=== PATIENT | female | born 1945 | race Caucasian/White ===

== ENCOUNTER 2016-12-27 09:51 | Day surgery (SDC) | payer MEDICARE ==
[~2016-12-27 09:51] MED LIST: Acetaminophen TAB* 325 MG PO PRN; Buffered Lidocaine 1% SYR 3ML* 3 ML/SYR SYRINGE INTRADERM ONE
[2016-12-27] MEDS ORDERED: Trypan Blue 0.06% SOL* 0.5 ML BTL ONE (12:03)
[2016-12-27] MEDS ORDERED: Midazolam* 1 MG/ML 2 ML VIAL (2 MG) ONE (12:46)
[2016-12-27 13:47] VITALS: BP 127/69
--- NOTE | 2016-12-28 04:23 | OP ---
DATE OF OPERATION: 12/27/16 [facility] DATE OF : 45 SURGEON: Guero Hensley MD PREOPERATIVE DIAGNOSIS: Cataract, right eye. POSTOPERATIVE DIAGNOSIS: Cataract, right eye. OPERATIVE PROCEDURE: Phacoemulsification, right eye with IOL. DESCRIPTION OF PROCEDURE: The patient was brought to the operating room after being given 1/2% Alcaine with epinephrine drops in the preoperative area. The eye was prepped and draped in the usual sterile fashion. Sterile drape and eyelid speculum were placed. Again, topical 1/2% Alcaine with epinephrine was given. A paracentesis incision was made at the 9 o'clock position with the No.75 blade. Clear cornea incision 2.2 x 2.2-mm was created at the 12 o'clock position starting at the anterior limbus using the 2.2-mm keratome. The anterior chamber was irrigated with 0.4 mL of 1% non-preservative intracameral lidocaine and filled with DisCoVisc. A capsulorrhexis was completed using the cystotome and the Utrata forceps. Hydrodissection was performed with balanced salt solution. The lens nucleus was removed with the Phacoemulsification handpiece without incident. Cortex was removed with the irrigation-aspiration handpiece. The capsular bag was re-inflated using DisCoVisc and an SN60WF 24.5 implant was inserted with the shooter. VisionBlue was used to stain the anterior capsule prior to capsulorrhexis. Indication for complex cataract surgery white cataract requiring VisionBlue capsular dye. The irrigation- aspiration handpiece was used to remove all residual DisCoVisc. The eye was refilled with balanced salt solution and the wound checked and found to be watertight. Topical Maxitrol drops were given. [id number]/[facility] #: [id number] MTDD
[2016-12-28] MEDS ORDERED: Lidocaine 1% MPF* 2 ML VIAL ONE (14:29)
[2016-12-28] MEDS ORDERED: Proparacaine 0.5% OPHTH.SOL* 15 ML BTL ONE (14:29)
[2016-12-28] MEDS ORDERED: Flurbiprofen 0.03% OPTH.SOL* 2.5 ML BTL ONE (14:29)
[2016-12-28] MEDS ORDERED: Cyclopentolate 1% OPTH.SOL* 2 ML BTL ONE (14:29)
[2016-12-28] MEDS ORDERED: Lidocaine 2% EPI 1:200000 MPF* 20 ML VIAL ONE (14:29)
[2016-12-28] MEDS ORDERED: acetaZOLAMIDE TAB* 250 MG ONE (14:29)
[2016-12-28] MEDS ORDERED: Phenylephrine 2.5% OPTH.SOL* 2 ML BTL ONE (14:29)
[2016-12-28] MEDS ORDERED: Povidone Iodine 5% OPTH* 30 ML BTL ONE (14:29)
[2016-12-28] MEDS ORDERED: Neomycin/Polymy/Dex OPTH.SUSP* MAXITROL 0.1% 5 ML ONE (14:29)
== END 2016-12-27 13:43 | disposition home or self-care (01) ==
LOC: OREAST 09:51
PROVIDERS: ATTEND Specialist
DX: H25.811 Combined forms of age-related cataract, right eye (principal); I10 Essential (primary) hypertension; F17.210 Nicotine dependence, cigarettes, uncomplicated
CPT/HCPCS: A9270-GY; J2250; V2632

== ENCOUNTER → 2017-01-31 09:29 | Day surgery (SDC) | payer MEDICARE ==
[~2017-01-31 09:29] MED LIST changes: -Buffered Lidocaine 1% SYR 3ML* 3 ML/SYR SYRINGE INTRADERM ONE; +Buffered Lidocaine 1% SYRIN* 3 ML/SYR SYRINGE INTRADERM ONE; +Cyclopentolate 1% OPTH.SOL* 2 ML BTL ONE; +Flurbiprofen 0.03% OPTH.SOL* 2.5 ML BTL ONE; +Lidocaine 1% MPF* 2 ML VIAL ONE; +Lidocaine 2% EPI 1:200000 MPF* 20 ML VIAL ONE; +Midazolam* 1 MG/ML 2 ML VIAL (2 MG) ONE; +Neomycin/Polymy/Dex OPTH.SUSP* MAXITROL 0.1% 5 ML ONE; +Phenylephrine 2.5% OPTH.SOL* 2 ML BTL ONE; +Povidone Iodine 5% OPTH* 30 ML BTL ONE; +Proparacaine 0.5% OPHTH.SOL* 15 ML BTL ONE; +acetaZOLAMIDE TAB* 250 MG ONE
[2017-01-31 12:49] VITALS: BP 130/74
--- NOTE | 2017-02-01 12:19 | OP ---
DATE OF OPERATION: 01/31/17 [facility] DATE OF : 45 SURGEON: Guero Hensley M.D. PREOPERATIVE DIAGNOSIS: Cataract, left eye. POSTOPERATIVE DIAGNOSIS: Cataract, left eye. OPERATIVE PROCEDURE: Phacoemulsification, left eye, with IOL. DESCRIPTION OF PROCEDURE: The patient was brought to the operating room after being given 1/2% Alcaine with epinephrine drops in the preoperative area. The eye was prepped and draped in the usual sterile fashion. Sterile drape and eyelid speculum were placed. Again, topical 1/2% Alcaine with epinephrine was given. A paracentesis incision was made at the 3 o'clock position with the No.75 blade. Clear cornea incision 2.2 x 2.2-mm was created at the 6 o'clock position starting at the anterior limbus using the 2.2-mm keratome. The anterior chamber was irrigated with 0.4 mL of 1% non-preservative intracameral lidocaine and filled with DisCoVisc. A capsulorrhexis was completed using the cystotome and the Utrata forceps. Hydrodissection was performed with balanced salt solution. The lens nucleus was removed with the Phacoemulsification handpiece without incident. Cortex was removed with the irrigation-aspiration handpiece. The capsular bag was re-inflated using DisCoVisc and an SN60WF 23.5- diopter implant was inserted with the shooter. The irrigation-aspiration handpiece was used to remove all residual DisCoVisc. The eye was refilled with balanced salt solution and the wound checked and found to be watertight. Topical Maxitrol drops were given. [id number]/[facility] #: [id number] [facility]
== END | disposition home or self-care (01) ==
LOC: OREAST 09:29
PROVIDERS: ATTEND Specialist
DX: H25.812 Combined forms of age-related cataract, left eye (principal); I10 Essential (primary) hypertension; F17.210 Nicotine dependence, cigarettes, uncomplicated; M19.90 Unspecified osteoarthritis, unspecified site
CPT/HCPCS: J2250; V2632

== ENCOUNTER 2018-05-09 02:55 | Emergency (ER) | payer MEDICARE ==
[2018-05-09] MEDS ORDERED: Clindamycin CAP* 150 MG PO ONE (03:14)
[2018-05-09] MEDS ORDERED: traMADol TAB* 50 MG PO ONE (03:15)
--- NOTE | 2018-05-09 03:17 | ED ---
Throat Pain/Nasal Congestion - HPI Summary HPI Summary: This patient is a 72 year old F presenting to ED with a chief complaint of swollen L mandibular since 1700 yesterday. The patient was not eating before onset. Her dentist wanted to pull her 3 teeth but she wouldnt let him. The CC is described as throbbing. The patient rates the pain 6/10 in severity. Symptoms aggravated by touching. Symptoms alleviated by nothing. Patient reports chills. Patient denies fever. - History of Current Complaint Chief Complaint: EDDentalPain Time Seen by Provider: 05/09/18 03:06 Hx Obtained From: Patient Onset/Duration: Sudden Onset, Lasting Hours - 1700 yesterday, Still Present Severity: Moderate - 6/10 - Allergies/Home Medications Allergies/Adverse Reactions: Allergies Allergy/AdvReac Type Severity Reaction Status Date / Time Penicillins Allergy Hives Verified 05/09/18 03:07 Home Medications: Home Medications Hydrochlorothiazide TAB* [Hydrodiuril TAB*] 25 mg PO DAILY 05/09/18 [History Confirmed 05/09/18] PMH/Surg Hx/FS Hx/Imm Hx Endocrine/Hematology History: Denies: Hx Diabetes, Hx Thyroid Disease Cardiovascular History: Reports: Hx Hypertension - controlled with meds Denies: Hx Pacemaker/ICD Respiratory History: Denies: Hx Asthma, Hx Chronic Obstructive Pulmonary Disease (COPD), Other Respiratory Problems/Disorders GI History: Denies: Hx Ulcer Musculoskeletal History: Reports: Hx Arthritis - fingers right hand Sensory History: Reports: Hx Cataracts - bilateral, Hx Contacts or Glasses - wears glasses Denies: Hx Hearing Aid Opthamlomology History: Reports: Hx Cataracts - bilateral, Hx Contacts or Glasses - wears glasses - Surgical History Surgery Procedure, Year, and Place: hysterectomy - 20 years ago, [facility] – [place]. right eye IOL - december 2016, [facility] – [place] Hx Anesthesia Reactions: No Infectious Disease History: No Infectious Disease History: Denies: Hx Hepatitis, Hx Human Immunodeficiency Virus (HIV), Traveled Outside the [place] in Last 30 Days - Family History Known Family History: Positive: Hypertension Negative: Cardiac Disease, Diabetes - Social History Alcohol Use: None Substance Use Type: Reports: None Hx Tobacco Use: Yes Smoking Status (MU): Heavy Every Day Tobacco Smoker Type: Cigarettes Amount Used/How Often: 1 1/2 PPD Review of Systems Positive: Chills. Negative: Fever Positive: Other - swollen L mandibular All Other Systems Reviewed And Are Negative: Yes Physical Exam - Summary Physical Exam Summary: VITAL SIGNS: Reviewed. GENERAL: Patient is a well-developed and nourished FEMALE who is lying comfortable in the stretcher. Patient is not in any acute respiratory distress. HEAD AND FACE: No signs of trauma. No ecchymosis, hematomas or skull depressions. No sinus tenderness. EYES: PERRLA, EOMI x 2, No injected conjunctiva, no nystagmus. EARS: Hearing grossly intact. Ear canals and tympanic membranes are within normal limits. MOUTH: Large, tender swollen area over the L lower face, which does not fit as neither sub mandibular nor parotid swelling. The patient has bad dentition has one loose left lower molar. Tenderness in the L lower gum. NECK: Supple, trachea is midline, no adenopathy, no JVD, no carotid bruit, no c- spine tenderness, neck with full ROM. CHEST: Symmetric, no tenderness at palpation LUNGS: Clear to auscultation bilaterally. No wheezing or crackles. CVS: Regular rate and rhythm, S1 and S2 present, no murmurs or gallops appreciated. ABDOMEN: Soft, non-tender. No signs of distention. No rebound no guarding, and no masses palpated. Bowel sounds are normal. EXTREMITIES: FROM in all major joints, no edema, no cyanosis or clubbing. NEURO: Alert and oriented x 3. No acute neurological deficits. Speech is normal and follows commands. SKIN: Dry and warm Triage Information Reviewed: Yes Vital Signs On Initial Exam: Initial Vitals Temp Pulse Resp BP Pulse Ox 97.5 F 69 16 190/95 95 05/09/18 02:57 05/09/18 02:57 05/09/18 02:57 05/09/18 02:57 05/09/18 02:57 Vital Signs Reviewed: Yes Diagnostics - Vital Signs Vital Signs Temp Pulse Resp BP Pulse Ox 05/09/18 02:57 97.5 F 69 16 190/95 95 - Laboratory Lab Statement: Any lab studies that have been ordered have been reviewed, and results considered in the medical decision making process. EENT Course/Dx - Course Assessment/Plan: This patient is a 72 year old F presenting to ED with a chief complaint of swollen L mandibular since 1700 yesterday. The patient will be discharged with abx. She was instructed to see her dentist today. The patient is agreeable with this plan. - Differential Diagnoses Differential Diagnoses: Dental Abscess, Gingivitis - Diagnoses Provider Diagnoses: Gingivitis Discharge - Sign-Out/Discharge Documenting (check all that apply): Patient Departure - Discharge Plan Condition: Stable Disposition: HOME Prescriptions: Clindamycin Cap(NF) [Clindamycin Cap 300 mg Cap(NF)] 300 mg PO Q6H #30 cap traMADol TAB* [Ultram*] 50 mg PO Q6HR PRN #14 tab MDD 4 PRN Reason: Pain Patient Education Materials: Gingivitis (ED) Referrals: Guero Hughes MD [Primary Care Provider] - (See your dentist today.) Additional Instructions: SEE YOUR DENTIST TODAY. RETURN TO THE EMERGENCY DEPARTMENT FOR CHANGING OR WORSENING SYMPTOMS.
[2018-05-09 04:13] VITALS: BP 177/82
== END 2018-05-09 04:12 | disposition home or self-care (01) ==
LOC: ED 02:55
DX: K05.10 Chronic gingivitis, plaque induced (principal); F17.210 Nicotine dependence, cigarettes, uncomplicated; Z88.0 Allergy status to penicillin
CPT/HCPCS: 99282; A9270-GY

== ENCOUNTER 2018-11-12 10:53 | Emergency (ER) | payer MEDICARE ==
--- NOTE | 2018-11-12 11:05 | UC ---
Respiratory Complaint HPI - HPI Summary HPI Summary: 73 yo female presents with 2-3 weeks of shortness of breath. She tells me that she saw her PCP who dx'd her with bronchitis and placed her on zpak. She finished the zpak about 5-6 days ago and has had no relief. Over the last 2 days she has been having left upper back pain and left shoulder pain with intermittent numbness/tingling down her left arm and into her hand. Pain is not worse with movement. Her symptoms were worse today - prompting her visit to the . She does have a headache, but says her "blood pressure is probably up". No chest pain, but describes feeling a "band around her chest" like a squeezing. She does smoke daily. No cardiac hx except for a heart murmur during . Denies fever, chills, palpitations, abdominal pain, n/v. - History of Current Complaint Stated Complaint: SHOULDER PAIN SOB Time Seen by Provider: 11/12/18 11:05 Hx Obtained From: Patient Onset/Duration: Gradual Onset Severity Initially: Mild Severity Currently: Mild Pain Intensity: 2 Pain Scale Used: 0-10 Numeric - Allergies/Home Medications Allergies/Adverse Reactions: Allergies Allergy/AdvReac Type Severity Reaction Status Date / Time Penicillins Allergy Hives Verified 11/12/18 11:06 Home Medications: Home Medications Guaifenesin/Dextromethorphan [Robitussin Hjywe-Uundn-Aerf Dm] 1 tab PO ONCE PRN 11/12/18 [History Confirmed 11/12/18] PMH/Surg Hx/FS Hx/Imm Hx Cardiovascular History: Hypertension - Surgical History Surgical History: Yes Surgery Procedure, Year, and Place: hysterectomy - 20 years ago, [facility] – [place]. right eye IOL - december 2016, [facility] – [place] - Family History Known Family History: Positive: Hypertension Negative: Cardiac Disease, Diabetes - Social History Lives: With Family Alcohol Use: None Substance Use Type: None Smoking Status (MU): Heavy Every Day Tobacco Smoker Type: Cigarettes Amount Used/How Often: 1 1/2 PPD Review of Systems All Other Systems Reviewed And Are Negative: Yes Constitutional: Positive: Negative Skin: Positive: Negative Eyes: Positive: Negative ENT: Positive: Negative Respiratory: Positive: Shortness Of Breath Cardiovascular: Positive: Other - "band around chest" Gastrointestinal: Positive: Negative Neurovascular: Positive: Negative Musculoskeletal: Positive: Other: - Left upper back/shoulder pain Neurological: Positive: Headache Psychological: Positive: Negative Physical Exam - Summary Physical Exam Summary: GENERAL: NAD. WDWN. No pain distress. SKIN: No rashes, sores, lesions, or open wounds. NECK: Supple. Nontender. No lymphadenopathy. CHEST: Scattered wheezing throughout. No accessory muscle use. Breathing comfortably and in no distress. CV: RRR. Aortic systolic murmur 3/6. Pulses intact. Cap refill <2seconds ABDOMEN: Soft. NTTP. No distention or guarding. Bowel sounds present MSK: Left upper back and left shoulder: FROM. NTTP. Pain not reproducible. NEURO: Alert. PSYCH: Age appropriate behavior. Triage Information Reviewed: Yes Vital Signs: Vital Signs: Temp Pulse Resp BP Pulse Ox 97.8 F 57 20 191/64 96 11/12/18 10:57 11/12/18 11:50 11/12/18 11:50 11/12/18 11:50 11/12/18 11:50 Vital Signs Reviewed: Yes Respiratory Course/Dx - Course Course Of Treatment: 56 sinus jasson. Anterolateral T inverted with no previous EKG for comparison as read by Dr. Galvan. Given pt's age, high BP, abnormal EKG , worsening symptoms today, and new murmur on exam - advised to be further evaluated in the ED for possible ACS. Pt was agreeable to this. [place] [facility] [place] Reports called to Emily BLOUNT in the ED. - Differential Dx/Diagnosis Provider Diagnosis: SOB (shortness of breath), Abnormal EKG, Cardiac murmur, HTN (hypertension) Discharge - Sign-Out/Discharge Documenting (check all that apply): Patient Departure All imaging exams completed and their final reports reviewed: No Studies - Discharge Plan Condition: Fair Disposition: TRANS HIGHER LVL OF CARE FAC Referrals: Guero Hughes MD [Primary Care Provider] - - Billing Disposition and Condition Condition: FAIR Disposition: Trans Higher Lvl of Care Fac
[2018-11-12 11:55] VITALS: BP 191/64
== END 2018-11-12 11:55 | disposition short-term general hospital (02) ==
LOC: UCEAST 10:53
DX: R06.02 Shortness of breath (principal); R01.1 Cardiac murmur, unspecified; R00.1 Bradycardia, unspecified; I10 Essential (primary) hypertension; Z88.0 Allergy status to penicillin; F17.210 Nicotine dependence, cigarettes, uncomplicated
CPT/HCPCS: 93005; 99213; G0463

== ENCOUNTER 2018-11-12 12:25 | Emergency (ER) | payer MEDICARE ==
--- NOTE | 2018-11-12 12:41 | ED ---
Shortness of Breath - HPI Summary HPI Summary: This pt is a 73 y/o female presenting to [facility] via EMS from [facility] for SOB for the past couple of weeks. She reports that she was treated for bronchitis with antibiotics that she finished about 5 days ago without relief. Today she c/o persistent cough and SOB. Additionally she states she has developed a headache and left upper extremity pain and numbness since 2 days ago. Pt describes left shoulder pain radiating down her left arm and radiating up to her neck. She rates this pain 3/10 in severity. She does admit she does heavy lifting. Denies chest pain, nausea, vomiting. She took Tylenol at 0800 today without relief. Pt is a current every day smoker. Denies hx of COPD, emphysema. - History of Current Complaint Chief Complaint: EDUpperRespComplaint Time Seen by Provider: 11/12/18 12:31 Hx Obtained From: Patient Onset/Duration: Lasting Days - 2, Still Present Timing: Constant Current Severity: Moderate Dyspnea At: Rest Aggrevating Factors: Nothing Alleviating Factors: Nothing Associated Signs & Symptoms: Cough (Nonproductive) - and left upper extremity pain and numbness - Allergy/Home Medications Allergies/Adverse Reactions: Allergies Allergy/AdvReac Type Severity Reaction Status Date / Time Penicillins Allergy Hives Verified 11/12/18 12:32 Home Medications: Home Medications Atenolol TAB* [Tenormin TAB* 50 MG] 50 mg PO DAILY 11/12/18 [History Confirmed 11/12/18] [place]-3 Fatty Acids (Nf) [Fish Oil (NF)] 1,000 mg PO DAILY 11/12/18 [History Confirmed 11/12/18] PMH/Surg Hx/FS Hx/Imm Hx Endocrine/Hematology History: Denies: Hx Diabetes, Hx Thyroid Disease Cardiovascular History: Reports: Hx Hypertension - controlled with meds Denies: Hx Pacemaker/ICD Respiratory History: Denies: Hx Asthma, Hx Chronic Obstructive Pulmonary Disease (COPD), Other Respiratory Problems/Disorders GI History: Denies: Hx Ulcer Musculoskeletal History: Reports: Hx Arthritis - fingers right hand Sensory History: Reports: Hx Cataracts - bilateral, Hx Contacts or Glasses - wears glasses Denies: Hx Hearing Aid Opthamlomology History: Reports: Hx Cataracts - bilateral, Hx Contacts or Glasses - wears glasses - Surgical History Surgery Procedure, Year, and Place: hysterectomy - 20 years ago, [facility] [place] - december 2016, [facility] [place]x Anesthesia Reactions: No Infectious Disease History: No Infectious Disease History: Denies: Hx Hepatitis, Hx Human Immunodeficiency Virus (HIV), Traveled Outside the [place] in Last 30 Days - Family History Known Family History: Positive: Hypertension Negative: Cardiac Disease, Diabetes - Social History Alcohol Use: None Substance Use Type: Reports: None Hx Tobacco Use: Yes Smoking Status (MU): Heavy Every Day Tobacco Smoker Type: Cigarettes Amount Used/How Often: 1 / PPD Review of Systems Negative: Fever, Chills Negative: Chest Pain Positive: Shortness Of Breath, Cough Negative: Vomiting, Nausea Musculoskeletal: Other - POS: left shoulder pain radiating down arm and up to neck Positive: Headache, Numbness - on left arm All Other Systems Reviewed And Are Negative: Yes Physical Exam - Summary Physical Exam Summary: VITAL SIGNS: Reviewed. GENERAL: Patient is a well-developed and nourished female who is lying comfortable in the stretcher. Patient is in some distress and with some anxiety. HEAD AND FACE: No signs of trauma. No ecchymosis, hematomas or skull depressions. No sinus tenderness. EYES: PERRLA, EOMI x 2, No injected conjunctiva, no nystagmus. EARS: Hearing grossly intact. Ear canals and tympanic membranes are within normal limits. MOUTH: Oropharynx within normal limits. NECK: Supple, trachea is midline, no adenopathy, no JVD, no carotid bruit, neck with full ROM. Tenderness in the C-spine on the left side. CHEST: Symmetric, no tenderness at palpation LUNGS: Wheezing bilaterally. CVS: Regular rate and rhythm, S1 and S2 present, no murmurs or gallops appreciated. ABDOMEN: Soft, non-tender. No signs of distention. No rebound, no guarding, and no masses palpated. Bowel sounds are normal. EXTREMITIES: FROM in all major joints, no edema, no cyanosis or clubbing. Good pulses, good capillary refill, good strength in the left upper extremity. NEURO: Alert and oriented x 3. No acute neurological deficits. Speech is normal and follows commands. SKIN: Dry and warm GCS: 15 Triage Information Reviewed: Yes Vital Signs On Initial Exam: Initial Vitals Temp Pulse Resp BP Pulse Ox 99.0 F 60 24 170/89 93 11/12/18 12:30 11/12/18 12:30 11/12/18 12:30 11/12/18 12:30 11/12/18 12:30 Vital Signs Reviewed: Yes Diagnostics - Vital Signs Vital Signs Temp Pulse Resp BP Pulse Ox 11/12/18 12:31 64 26 93 11/12/18 12:30 99.0 F 61 14 170/89 93 - Laboratory Result Diagrams: 11/12/18 13:04 11/12/18 15:00 Lab Statement: Any lab studies that have been ordered have been reviewed, and results considered in the medical decision making process. - Radiology Chest XR Radiology Interpretation Completed By: Radiologist Summary of Radiographic Findings: IMPRESSION: Hyperinflation. No active cardiopulmonary disease. Dr. Smith has reviewed this report. - CT Brain CT CT Interpretation Completed By: Radiologist Summary of CT Findings: IMPRESSION: No acute intracranial pathology. Chronic small vessel ischemic changes. Dr. Smith has reviewed this report. Cervical spine CT CT Interpretation Completed By: Radiologist Summary of CT Findings: IMPRESSION: 1. Straightening of the cervical spine. No evidence for fracture or subluxation. 2. Diffuse cervical spondylosis as described. If the patient's symptoms persist consider MR imaging for further evaluation. Dr. Smith has reviewed this report. - EKG 12:38 Cardiac Rate: Bradycardia - at 57 bpm EKG Rhythm: Sinus Bradycardia EKG Comparison: No Significant Change - similar to prior EKG on 11/12/18. Summary of EKG Findings: No ST elevations. Inverted T waves in I, aVL, V4, V5. Bipashic P wave in II, III, aVF. Re-Evaluation - Re-Evaluation First Eval Re-Evaluation Time: 16:05 Comment: I reviewed the lab and CT results with the pt. She will be discharged home. Course/Dx - Course Assessment/Plan: This pt is a 73 y/o female presenting to [facility] via EMS from [facility] for SOB for the past couple of weeks. She reports that she was treated for bronchitis with antibiotics that she finished about 5 days ago without relief. Today she c/o persistent cough and SOB. Additionally she states she has developed a headache and left upper extremity pain and numbness since 2 days ago. Pt describes left shoulder pain radiating down her left arm and radiating up to her neck. She rates this pain 3/10 in severity. She does admit she does heavy lifting. Denies chest pain, nausea, vomiting. She took Tylenol at 0800 today without relief. Pt is a current every day smoker. Denies hx of COPD, emphysema. Test results without any significant abnormality except for an increased H&H of 16.7 and 48, chloride 100, total bili is 1.1 and BNP is 149. Troponin was 0.01 and CK-MB is 2.1. Head CT impression: No acute intra- abdominal pathology. Chronic small vessel ischemic changes. CT C-spine impression: History given of the cervical spine, no evidence for fracture or subluxation. Diffuse cervical spondylosis. Chest x-ray impression: Hyperinflation. No active pulmonary disease. In the ED course the patient declined any pain medications initially. Then she only wanted to get ibuprofen. She reports that the pain has resolved and she doesnt have any complaints. Therefore since the patients symptoms have resolved and all the test results are within normal limits the patient will be discharged home with follow-up from her PCP. I discussed all the findings and test results with the patient. Patient was instructed to return to the emergency room immediately if any of the symptoms return or worsens. Plan of care was discussed with the patient and understands and agrees. All questions were answered at patient satisfaction. There were no further complaints or concerns. Lung exam before discharge: CTA B/L. Good air exchange. No wheezing or crackles heard. CVS: S1 and S2 present. No murmurs appreciated. Patient is alert and oriented x 3. Patient is hemodynamically stable. Patient will be discharged home with follow up from her PCP in the next 2-3 days. - Diagnoses Provider Diagnoses: Neck pain, Pain of left upper extremity Discharge - Sign-Out/Discharge Documenting (check all that apply): Patient Departure - Discharge home - Discharge Plan Condition: Stable Disposition: HOME Patient Education Materials: Arm Pain (ED), Neck Pain (ED) Referrals: Guero Hughes MD [Primary Care Provider] - Additional Instructions: FOLLOW UP WITH YOUR PRIMARY CARE PROVIDER WITHIN ONE WEEK FOR HIGH BLOOD PRESSURE NOTED TODAY. RETURN TO THE ED FOR ANY NEW OR WORSENING SYMPTOMS. - Billing Disposition and Condition Condition: STABLE Disposition: Home - Attestation Statements Document Initiated by Scribe: Yes Documenting Scribe: Michelle Hamlin Provider For Whom Scribe is Documenting (Include Credential): Enrique Smith MD Scribe Attestation: I, Michelle Hamlin, scribed for Enrique Smith MD on 11/13/18 at 0718. Scribe Documentation Reviewed: Yes Provider Attestation: The documentation as recorded by the scribe, Michelle Hamlin accurately reflects the service I personally performed and the decisions made by me, Enrique Smith MD Status of Scribe Document: Viewed
[2018-11-12 13:33] LABS: ABS Basophils 0 10^3/ul (0-0.2); ABS Eosinophils 0.2 10^3/ul (0-0.6); ABS Lymphocytes 1.9 10^3/ul (1.0-4.8); ABS Monocytes 0.4 10^3/ul (0-0.8); ABS Neutrophils 3.7 10^3/ul (1.5-7.7); ABS Nucleated RBC 0 10^3/ul; Eosinophil % 3.2 %; Hematocrit 48 % (35-47); Hemoglobin 16.7 g/dl (12.0-16.0); Lymphocyte % 30.6 %; Mean Corpuscular HGB Conc 35 g/dl (31-36); Mean Corpuscular Hemoglobin 32 pg (27-31); Mean Corpuscular Volume 92 fL (80-97); Mean Platelet Volume 8.4 fL (7.4-10.4); Nucleated Red Blood Cells % 0; Platelet Count 157 10^3/ul (150-450); Red Blood Count 5.21 10^6/ul (4.00-5.40); Red Cell Distribution Width 13 % (10.5-15); White Blood Count 6.3 10^3/ul (3.5-10.8)
[2018-11-12] MEDS: Dexamethasone IV* 4 MG/ML 1 ML (4 MG) IV SLOW PU ONE ×2 (14:42→16:08)
[2018-11-12] MEDS: Ketorolac INJ* 30 MG/ML 1 ML VIAL IV PUSH ONE ×2 (14:42→16:08)
[2018-11-12 15:39] LABS: Albumin 4.4 g/dL (3.2-5.2); Albumin/Globulin Ratio 2.1 (1-3); BUN/Creatinine Ratio 22.5 (8-20); EGFR Non-African American 80.7 (>60); Globulin 2.1 g/dL (2-4); Magnesium 1.9 mg/dL (1.9-2.7); Potassium 3.8 mmol/L (3.5-5.0); Total Bilirubin 1.1 mg/dL (0.2-1.0); Total Protein 6.5 g/dL (6.4-8.9)
[2018-11-12 16:06] LABS: TSH (Thyroid Stimulating Horm) 1.26 mcIU/mL (0.34-5.60)
[2018-11-12] MEDS ORDERED: Ibuprofen TAB* 600 MG PO ONE (16:06)
[2018-11-12 16:21] VITALS: BP 135/81
== END 2018-11-12 16:26 | disposition home or self-care (01) ==
LOC: ED 12:25
DX: M79.602 Pain in left arm (principal); M54.2 Cervicalgia; R06.02 Shortness of breath; R05 Cough; F17.210 Nicotine dependence, cigarettes, uncomplicated; Z88.1 Allergy status to other antibiotic agents; R01.1 Cardiac murmur, unspecified; R00.1 Bradycardia, unspecified; I10 Essential (primary) hypertension; Z88.0 Allergy status to penicillin
CPT/HCPCS: 36415; 70450; 71046; 72125; 80053; 82550; 82553; 83605; 83735; 83880; 84443; 84484; 85025; 93005; 96374; 96375; 99284; A9270-GY; J1100; J1885

== ENCOUNTER 2024-03-23 21:46 | Inpatient (IN) ==
[2024-03-23 22:17] LABS: Hematocrit 25.6 % (35-45); Hemoglobin 8.2 g/dL (11.5-14.3); Mean Corpuscular Hemoglobin 21.8 pg (27-33); Mean Corpuscular Hgb Conc 32.1 g/dL (31-36); Mean Corpuscular Volume 67.9 fL (80-97); Mean Platelet Volume 8.5 fL (7.5-11.2); Platelet Count 249 10^3/uL (150-450); Red Blood Count 3.76 10^6/uL (3.63-4.92); Red Cell Distribution Width 21.9 % (12-17); White Blood Count 6.4 10^3/uL (3.8-11.8)
[2024-03-23 22:23] LABS: INR 1.32 (0.83-1.13)
[2024-03-23 22:42] LABS: ABS Basophils 0.1 10^3/uL (0.0-0.1); ABS Eosinophils 0.2 10^3/uL (0.0-0.5); ABS Monocytes 0.5 10^3/uL (0.0-0.9); ABS Neutrophils 4.6 10^3/uL (1.5-7.6); Anisocytosis 1+; Eosinophil % 2.9 %; Lymphocyte % 15.5 %; Microcytosis 1+; Polychromasia 1+
[2024-03-23 22:57] LABS: Potassium 3.7 mmol/L (3.5-5.0)
[2024-03-23 22:58] LABS: Albumin 4.4 g/dL (3.2-5.2); Albumin/Globulin Ratio 2.1 (1-3); Calcium 10.3 mg/dL (8.6-10.3); Creatinine, Serum 1.17 mg/dL (0.51-0.95); Globulin 2.1 g/dL (2-4); Total Bilirubin 0.5 mg/dL (0.2-1.0); Total Protein 6.5 g/dL (6.4-8.9); eGFR CKD-EPI 47.8 (>60)
[2024-03-23 23:21] LABS: High Sensitivity Troponin 1 Hr 21 pg/mL (<15)
[2024-03-23] MEDS: Iodixanol (CONTRAST) 320 MG/ML 100 ML SDV IV ONE (23:39)
[2024-03-24] MEDS ORDERED: Senna TAB 8.6 mg TAB PO PRN (00:52)
[2024-03-24] MEDS ORDERED: Polyethylene Glycol 3350 17 GM PACKET PO PRN (00:52)
[2024-03-24] MEDS: Morphine 4 MG/ML VIAL (1 ml) IV ONE (01:20)
[2024-03-24] MEDS: Pantoprazole 80 mg in NS BAG 80 MG/250 ML BAG IV ONE (01:36)
[2024-03-24 02:51] LABS: Osmolality Serum 264 mOsm/kg (275-295)
[2024-03-24] MEDS: Acetaminophen IV 1 GM/100ML 1,000 MG/100 ML BAG IV SCH (03:08)
[2024-03-24] MEDS ORDERED: Dextrose 50% Syringe 50 ml 25 GM/50 ML SYRINGE IV PUSH PRN (03:44)
[2024-03-24 06:39] LABS: Ferritin 13.3 ng/mL (11-307)
[2024-03-24 06:42] LABS: Folate 14.55 ng/mL (5.90-24.80)
[2024-03-24 08:53] LABS: TSH Ultra Thyroid Stim Horm 2.24 mcIU/mL (0.34-5.60)
[2024-03-24] MEDS: Lidocaine PATCH 4% TOPICAL SCH (10:48)
[2024-03-24 11:42] LABS: Hematocrit 23.5 % (35-45); Hemoglobin 7.7 g/dL (11.5-14.3)
[2024-03-24] MEDS: Pantoprazole VIAL 40 MG VIAL IV SCH (11:54)
[2024-03-24 12:22] LABS: Calcium 9.5 mg/dL (8.6-10.3); Creatinine, Serum 1.1 mg/dL (0.51-0.95); Potassium 3.6 mmol/L (3.5-5.0); eGFR CKD-EPI 51.4 (>60)
[2024-03-24 13:13] LABS: Urine Osmo 533 mOsm/kg (150-1150)
[2024-03-24 13:56] LABS: HDL Cholesterol 35.9 mg/dL
[2024-03-24 15:34] LABS: Calcium 9.7 mg/dL (8.6-10.3); Creatinine, Serum 1.14 mg/dL (0.51-0.95); Potassium 3.7 mmol/L (3.5-5.0); Uric Acid 7.1 mg/dL (2.3-6.6); eGFR CKD-EPI 49.3 (>60)
[2024-03-24 16:48] LABS: Urine Creatinine Concentration 126.37 mg/dL (20.00-320.00)
[2024-03-24] MEDS: NS 0.9% 500 ml BAG 500 ML IV ONE (17:13)
[2024-03-24 22:59] LABS: Hemoglobin 7.5 g/dL (11.5-14.3)
[2024-03-24 23:35] LABS: Calcium 9.2 mg/dL (8.6-10.3); Creatinine, Serum 1.09 mg/dL (0.51-0.95); Potassium 3.7 mmol/L (3.5-5.0)
[2024-03-25] MEDS: NS 0.9% 500 ml BAG 500 ML IV SCH ×2 (00:08→21:23)
[2024-03-25] MEDS: Ondansetron 4 mg VIAL 2 MG/ML 2 ml VIAL IV PRN (01:09)
[2024-03-25 03:57] LABS: Calcium 8.6 mg/dL (8.6-10.3); Creatinine, Serum 1.02 mg/dL (0.51-0.95); Potassium 3.8 mmol/L (3.5-5.0); eGFR CKD-EPI 56.3 (>60)
[2024-03-25] MEDS ORDERED: Sulfur Hexaflouride MICROSPHR 25 MG VIAL ONE ×2 (08:11→13:33)
[2024-03-25 08:47] LABS: ABS Eosinophils 0.1 10^3/uL (0.0-0.5); ABS Lymphocytes 0.8 10^3/uL (1.0-4.8); ABS Monocytes 0.5 10^3/uL (0.0-0.9); Eosinophil % 2.3 %; Hematocrit 26.4 % (35-45); Hemoglobin 8.7 g/dL (11.5-14.3); Lymphocyte % 11.8 %; Mean Corpuscular Hemoglobin 23.1 pg (27-33); Mean Corpuscular Hgb Conc 33.1 g/dL (31-36); Mean Corpuscular Volume 69.7 fL (80-97); Mean Platelet Volume 8.3 fL (7.5-11.2); Platelet Count 192 10^3/uL (150-450); Red Blood Count 3.78 10^6/uL (3.63-4.92); Red Cell Distribution Width 21.9 % (12-17); White Blood Count 6.4 10^3/uL (3.8-11.8)
[2024-03-25 08:54] LABS: Albumin 4.2 g/dL (3.2-5.2); Albumin/Globulin Ratio 2.1 (1-3); Creatinine, Serum 1.01 mg/dL (0.51-0.95); Potassium 4.3 mmol/L (3.5-5.0); Total Bilirubin 1.6 mg/dL (0.2-1.0); Total Protein 6.2 g/dL (6.4-8.9)
[2024-03-25] MEDS: NS 0.9% 1000 ml BAG 1,000 ML IV SCH (11:42)
[2024-03-25 16:05] LABS: Urine Appearance Turbid; Urine Bilirubin Negative (Negative); Urine Blood Negative (Negative); Urine Color Yellow; Urine Glucose Negative (Negative); Urine Ketones Negative (Negative); Urine Nitrite 2+ (Negative); Urine Protein Trace (Negative); Urine Specific Gravity 1.026 (1.002-1.030); Urine Urobilinogen Negative (Negative); Urine pH 5.5 (5.0-8.0)
[2024-03-25 16:10] LABS: Urine Bacteria 3+ /HPF (Absent); Urine Red Blood Cell 2+(6-10/hpf) /HPF (0-Trace); Urine Squamous Epithelial Cell Present /HPF (Absent); Urine White Blood Cell 3+(>20/hpf) /HPF (0-Trace)
[2024-03-25 17:41] LABS: Hematocrit 24.7 % (35-45); Hemoglobin 7.8 g/dL (11.5-14.3)
[2024-03-25 19:14] LABS: Calcium 8.6 mg/dL (8.6-10.3); Creatinine, Serum 0.92 mg/dL (0.51-0.95); Potassium 4.4 mmol/L (3.5-5.0); eGFR CKD-EPI 63.7 (>60)
[2024-03-25 19:58] LABS: Urine Osmo 568 mOsm/kg (150-1150)
[2024-03-26 02:35] LABS: Hematocrit 25.5 % (35-45); Hemoglobin 8.3 g/dL (11.5-14.3)
[2024-03-26] MEDS: Fluticasone NASAL SPRAY 50MCG 16 gm SPRAY BTL BOTH NARES SCH (02:51)
[2024-03-26 08:14] LABS: Hematocrit 24.7 % (35-45); Hemoglobin 8.1 g/dL (11.5-14.3); Mean Corpuscular Hemoglobin 23.2 pg (27-33); Mean Corpuscular Hgb Conc 32.8 g/dL (31-36); Mean Corpuscular Volume 70.6 fL (80-97); Mean Platelet Volume 7.7 fL (7.5-11.2); Platelet Count 198 10^3/uL (150-450); Red Blood Count 3.51 10^6/uL (3.63-4.92); Red Cell Distribution Width 21.5 % (12-17); White Blood Count 6.5 10^3/uL (3.8-11.8)
[2024-03-26 08:27] LABS: Calcium 8.9 mg/dL (8.6-10.3); Creatinine, Serum 0.86 mg/dL (0.51-0.95); Magnesium 1.7 mg/dL (1.9-2.7); eGFR CKD-EPI 69.1 (>60)
[2024-03-26] MEDS: NS 0.9% 1000 ml BAG 1,000 ML IV SCH ×3 (12:15→23:16)
[2024-03-26 13:21] LABS: Albumin 4.1 g/dL (3.2-5.2); Albumin/Globulin Ratio 2.2 (1-3); Calcium 9.2 mg/dL (8.6-10.3); Direct Bilirubin 0.1 mg/dL (0.03-0.18); Globulin 1.9 g/dL (2-4); Potassium 4.3 mmol/L (3.5-5.0); Total Bilirubin 0.5 mg/dL (0.2-1.0)
[2024-03-26 13:54] LABS: Creatinine, Serum 0.86 mg/dL (0.51-0.95); eGFR CKD-EPI 69.1 (>60)
[2024-03-26] MEDS: cefTRIAXone 1 gm/50 mL D5W 1 GM/50 ML BAG IV SCH (17:50)
[2024-03-26 19:44] LABS: Hematocrit 23.8 % (35-45); Hemoglobin 7.7 g/dL (11.5-14.3)
[2024-03-26 20:28] LABS: Calcium 8.5 mg/dL (8.6-10.3); Creatinine, Serum 0.86 mg/dL (0.51-0.95); eGFR CKD-EPI 69.1 (>60)
[2024-03-27] MEDS: NS 0.9% 1000 ml BAG 1,000 ML IV SCH (00:40)
[2024-03-27 05:05] LABS: ABS Eosinophils 0.2 10^3/uL (0.0-0.5); ABS Monocytes 0.6 10^3/uL (0.0-0.9); ABS Neutrophils 4.8 10^3/uL (1.5-7.6); ABS Nucleated RBC 0.01 10^3/ul; Hemoglobin 7.9 g/dL (11.5-14.3); Lymphocyte % 15.1 %; Mean Corpuscular Hemoglobin 22.3 pg (27-33); Mean Corpuscular Hgb Conc 31.5 g/dL (31-36); Mean Corpuscular Volume 70.8 fL (80-97); Mean Platelet Volume 8.3 fL (7.5-11.2); Nucleated Red Blood Cells % 0.1 %/100WBC (0.0-0.8); Platelet Count 199 10^3/uL (150-450); Red Blood Count 3.54 10^6/uL (3.63-4.92); Red Cell Distribution Width 21.9 % (12-17); White Blood Count 6.6 10^3/uL (3.8-11.8)
[2024-03-27 05:36] LABS: Calcium 8.6 mg/dL (8.6-10.3); Creatinine, Serum 0.83 mg/dL (0.51-0.95); Potassium 3.9 mmol/L (3.5-5.0); eGFR CKD-EPI 72.1 (>60)
[2024-03-27 08:32] LABS: Magnesium 1.8 mg/dL (1.9-2.7)
[2024-03-27] MEDS ORDERED: guaiFENesin 100 mg/5 ml LIQ unit dose cup PO PRN (11:18)
[2024-03-27] MEDS ORDERED: Lidocaine 2% PF 5 ML VIAL ONE (14:35)
[2024-03-27] MEDS ORDERED: Propofol 10 MG/ML 20 ML BTL ONE (14:35)
[2024-03-27] MEDS ORDERED: Midazolam 2 mg/2 ml VIAL 1 mg/ml 2 ml VIAL (2 mg) ONE (14:39)
[2024-03-27] MEDS ORDERED: fentaNYL 100 mcg/2 ml 50 MCG/ML VIAL ONE (14:48)
[2024-03-27] MEDS: Albuterol HFA INHALER 8 gm MDI INH PRN (19:43)
[2024-03-27] MEDS: Furosemide 40 mg/4 ml IV VIAL IV SLOW PU ONE ×2 (19:57→21:37)
[2024-03-27] MEDS: Nitrofurantoin (monohydrate/macrocrystals) 100 mg CAP PO SCH (21:00)
[2024-03-27] MEDS: Albuterol/Ipratropium NEB.SOL (2.5/0.5 MG) 3 ML NEB.SOLN INH ONE (21:33)
[2024-03-27] MEDS: Morphine 2 MG/ML SYRINGE IV ONE (21:45)
[2024-03-27] MEDS: Enoxaparin 40 MG/0.4 ML SYR SUBCUT SCH (21:52)
[2024-03-27 22:43] LABS: Creatinine, Serum 1.04 mg/dL (0.51-0.95)
[2024-03-27] MEDS: Albuterol/Ipratropium NEB.SOL (2.5/0.5 MG) 3 ML NEB.SOLN INH SCH (22:48)
[2024-03-27] MEDS: cefTRIAXone 1 gm/50 mL D5W 1 GM/50 ML BAG IV SCH (23:48)
[2024-03-28 02:11] LABS: High Sensitivity Troponin 1 Hr 2604 pg/mL (<15)
[2024-03-28 06:29] LABS: ABS Eosinophils 0.1 10^3/uL (0.0-0.5); ABS Lymphocytes 0.7 10^3/uL (1.0-4.8); ABS Monocytes 0.8 10^3/uL (0.0-0.9); ABS Neutrophils 6.7 10^3/uL (1.5-7.6); Eosinophil % 0.8 %; Hematocrit 26.7 % (35-45); Hemoglobin 8.6 g/dL (11.5-14.3); Lymphocyte % 8.9 %; Mean Corpuscular Hemoglobin 22.8 pg (27-33); Mean Corpuscular Hgb Conc 32.2 g/dL (31-36); Mean Corpuscular Volume 70.9 fL (80-97); Mean Platelet Volume 7.9 fL (7.5-11.2); Nucleated Red Blood Cells % 0.1 %/100WBC (0.0-0.8); Platelet Count 228 10^3/uL (150-450); Red Blood Count 3.76 10^6/uL (3.63-4.92); Red Cell Distribution Width 21.6 % (12-17); White Blood Count 8.3 10^3/uL (3.8-11.8)
[2024-03-28 06:54] LABS: Albumin/Globulin Ratio 1.9 (1-3); Calcium 8.8 mg/dL (8.6-10.3); Creatinine, Serum 0.82 mg/dL (0.51-0.95); Globulin 2.1 g/dL (2-4); Magnesium 1.7 mg/dL (1.9-2.7); Total Bilirubin 0.4 mg/dL (0.2-1.0); Total Protein 6.1 g/dL (6.4-8.9); eGFR CKD-EPI 73.2 (>60)
[2024-03-28] MEDS: Heparin 5000 UNITS/ML 1 mL VIAL IV PRN (09:59)
[2024-03-28 10:02] LABS: Creatinine, Serum 0.87 mg/dL (0.51-0.95); eGFR CKD-EPI 68.2 (>60)
[2024-03-28] MEDS: Heparin DRIP 25,000 UNITS BAG 25,000 UNITS/250 ML BAG IV SCH (10:03)
[2024-03-28] MEDS: Furosemide 40 mg/4 ml IV VIAL IV ONE ×2 (10:30→11:49)
[2024-03-28] MEDS: Iodixanol (CONTRAST) 320 MG/ML 100 ML SDV IV ONE (11:44)
[2024-03-28] MEDS: Albuterol/Ipratropium NEB.SOL (2.5/0.5 MG) 3 ML NEB.SOLN INH SCH (12:41)
[2024-03-28] MEDS ORDERED: Albuterol/Ipratropium NEB.SOL (2.5/0.5 MG) 3 ML NEB.SOLN INH PRN (12:55)
[2024-03-28] MEDS: Magnesium Sulf 4 GM/100 ML IV 4,000 MG/100 ML BAG IVPB ONE (16:23)
[2024-03-29 02:52] LABS: Urine Osmo 393 mOsm/kg (150-1150)
[2024-03-29 03:54] LABS: ABS Basophils 0.1 10^3/uL (0.0-0.1); ABS Eosinophils 0.2 10^3/uL (0.0-0.5); ABS Lymphocytes 0.9 10^3/uL (1.0-4.8); ABS Monocytes 0.7 10^3/uL (0.0-0.9); ABS Neutrophils 6.1 10^3/uL (1.5-7.6); Eosinophil % 2.8 %; Hematocrit 27.2 % (35-45); Lymphocyte % 11.6 %; Mean Corpuscular Hemoglobin 23.7 pg (27-33); Mean Corpuscular Volume 71.8 fL (80-97); Mean Platelet Volume 8.3 fL (7.5-11.2); Platelet Count 195 10^3/uL (150-450); Red Blood Count 3.79 10^6/uL (3.63-4.92); Red Cell Distribution Width 22.3 % (12-17)
[2024-03-29 04:31] LABS: Calcium 8.7 mg/dL (8.6-10.3); Creatinine, Serum 0.76 mg/dL (0.51-0.95); Magnesium 2.3 mg/dL (1.9-2.7); Potassium 3.2 mmol/L (3.5-5.0); eGFR CKD-EPI 80.2 (>60)
[2024-03-29 08:34] LABS: High Sensitivity Troponin 1 Hr 5638 pg/mL (<15)
[2024-03-29] MEDS: Lidocaine PATCH 5% PATCH TRANSDERM SCH (09:40)
[2024-03-29] MEDS: Potassium Chlor 20 meq TAB.ER PO SCH (09:41)
[2024-03-29] MEDS: Senna TAB 8.6 mg TAB PO PRN (16:54)
[2024-03-29] MEDS: Polyethylene Glycol 3350 17 GM PACKET PO PRN (16:54)
[2024-03-29] MEDS ORDERED: Amoxicillin/Clavul 875/125 TAB (Augmentin 875 tab) PO SCH (17:00)
[2024-03-29] MEDS: Acetaminophen IV 1 GM/100ML 1,000 MG/100 ML BAG IV SCH (21:18)
[2024-03-30 06:08] LABS: ABS Eosinophils 0.2 10^3/uL (0.0-0.5); ABS Monocytes 0.7 10^3/uL (0.0-0.9); ABS Neutrophils 4.8 10^3/uL (1.5-7.6); Eosinophil % 2.8 %; Hematocrit 26.9 % (35-45); Hemoglobin 8.7 g/dL (11.5-14.3); Lymphocyte % 15.5 %; Mean Corpuscular Hemoglobin 23.4 pg (27-33); Mean Corpuscular Hgb Conc 32.4 g/dL (31-36); Mean Corpuscular Volume 72.4 fL (80-97); Mean Platelet Volume 7.7 fL (7.5-11.2); Platelet Count 217 10^3/uL (150-450); Red Blood Count 3.71 10^6/uL (3.63-4.92); Red Cell Distribution Width 22.5 % (12-17); White Blood Count 6.7 10^3/uL (3.8-11.8)
[2024-03-30 06:20] LABS: Calcium 8.7 mg/dL (8.6-10.3); Creatinine, Serum 0.72 mg/dL (0.51-0.95); Magnesium 1.9 mg/dL (1.9-2.7); Potassium 4.2 mmol/L (3.5-5.0); eGFR CKD-EPI 85.5 (>60)
[2024-03-31 06:12] LABS: Calcium 9.1 mg/dL (8.6-10.3); Creatinine, Serum 0.77 mg/dL (0.51-0.95); eGFR CKD-EPI 78.9 (>60)
[2024-03-31 06:19] LABS: Hematocrit 26.9 % (35-45); Hemoglobin 8.6 g/dL (11.5-14.3); Mean Corpuscular Hemoglobin 23.2 pg (27-33); Mean Corpuscular Hgb Conc 32.2 g/dL (31-36); Mean Corpuscular Volume 72.3 fL (80-97); Mean Platelet Volume 8.7 fL (7.5-11.2); Platelet Count 207 10^3/uL (150-450); Red Blood Count 3.72 10^6/uL (3.63-4.92); Red Cell Distribution Width 22.2 % (12-17); White Blood Count 6.8 10^3/uL (3.8-11.8)
[2024-03-31] MEDS ORDERED: Aminophylline 25 MG/ML VIAL ONE (10:49)
[2024-03-31] MEDS ORDERED: Regadenoson 0.4 MG/5 ML SYRINGE ONE (10:49)
[2024-03-31] MEDS: Furosemide 40 mg/4 ml IV VIAL IV SLOW PU ONE (14:33)
[2024-04-01 05:48] LABS: Calcium 9.3 mg/dL (8.6-10.3); Magnesium 1.7 mg/dL (1.9-2.7); Potassium 4.1 mmol/L (3.5-5.0); eGFR CKD-EPI 57.7 (>60)
[2024-04-01 05:55] LABS: ABS Basophils 0.1 10^3/uL (0.0-0.1); ABS Eosinophils 0.2 10^3/uL (0.0-0.5); ABS Lymphocytes 0.9 10^3/uL (1.0-4.8); ABS Monocytes 0.7 10^3/uL (0.0-0.9); ABS Neutrophils 5.2 10^3/uL (1.5-7.6); Eosinophil % 3.1 %; Hematocrit 27.6 % (35-45); Hemoglobin 8.8 g/dL (11.5-14.3); Lymphocyte % 13.4 %; Mean Corpuscular Hemoglobin 23.2 pg (27-33); Mean Corpuscular Hgb Conc 31.9 g/dL (31-36); Mean Corpuscular Volume 72.8 fL (80-97); Mean Platelet Volume 7.7 fL (7.5-11.2); Platelet Count 199 10^3/uL (150-450); Red Cell Distribution Width 22.5 % (12-17)
[2024-04-01] MEDS: Magnesium Sulfate 2 gm BAG 2 GM/50 ML BAG IVPB ONE (09:44)
[2024-04-01] MEDS: Ferric Gluconate IV 250 MG in NS 0.9% 250 ml 200 ML IVPB ONE (10:50)
[2024-04-01] MEDS: Magnesium Sulfate IV 1GM/100ML 1 GM/100 ML BAG IV ONE (11:03)
[2024-04-01 13:08] VITALS: BP 158/91
== END 2024-04-01 16:10 | disposition home or self-care (01) | DRG 377 ==
LOC: ED 21:46 → SUATTDRO 03-24 00:52 → EDHOLD 03-24 00:52 → MEDTELE 03-24 01:15
PROVIDERS: ADMIT Internal Medicine; ATTEND Internal Medicine
PROC: O.GIEGD (2024-03-27 15:35)

== ENCOUNTER 2024-04-03 19:26 | Observation (INO) ==
[2024-04-03 20:33] LABS: ABS Basophils 0.1 10^3/uL (0.0-0.1); ABS Eosinophils 0.2 10^3/uL (0.0-0.5); ABS Lymphocytes 1.3 10^3/uL (1.0-4.8); ABS Monocytes 0.6 10^3/uL (0.0-0.9); ABS Neutrophils 5.1 10^3/uL (1.5-7.6); Hemoglobin 7.8 g/dL (11.5-14.3); Mean Corpuscular Hemoglobin 23.4 pg (27-33); Mean Corpuscular Hgb Conc 32.3 g/dL (31-36); Mean Corpuscular Volume 72.2 fL (80-97); Mean Platelet Volume 7.7 fL (7.5-11.2); Platelet Count 222 10^3/uL (150-450); Red Blood Count 3.32 10^6/uL (3.63-4.92); Red Cell Distribution Width 22.8 % (12-17); White Blood Count 7.3 10^3/uL (3.8-11.8)
[2024-04-03 21:15] LABS: Albumin/Globulin Ratio 2.4 (1-3); Calcium 9.5 mg/dL (8.6-10.3); Creatinine, Serum 1.12 mg/dL (0.51-0.95); Globulin 1.7 g/dL (2-4); Potassium 3.9 mmol/L (3.5-5.0); Total Bilirubin 0.4 mg/dL (0.2-1.0); Total Protein 5.7 g/dL (6.4-8.9); eGFR CKD-EPI 50.3 (>60)
[2024-04-04] MEDS: Pantoprazole VIAL 40 MG VIAL IV ONE (00:45)
[2024-04-04] MEDS: Pantoprazole 80 mg in NS BAG 80 MG/250 ML BAG IV ONE (01:12)
[2024-04-04] MEDS ORDERED: Albuterol HFA INHALER 8 gm MDI INH PRN (02:11)
[2024-04-04] MEDS ORDERED: Dextrose 50% Syringe 50 ml 25 GM/50 ML SYRINGE IV PUSH PRN (02:12)
[2024-04-04 07:12] LABS: ABS Basophils 0.1 10^3/uL (0.0-0.1); ABS Eosinophils 0.2 10^3/uL (0.0-0.5); ABS Lymphocytes 0.9 10^3/uL (1.0-4.8); ABS Monocytes 0.7 10^3/uL (0.0-0.9); ABS Neutrophils 4.5 10^3/uL (1.5-7.6); Eosinophil % 3.5 %; Hematocrit 25.5 % (35-45); Hemoglobin 8.4 g/dL (11.5-14.3); Lymphocyte % 14.9 %; Mean Corpuscular Hemoglobin 24.4 pg (27-33); Mean Corpuscular Volume 73.7 fL (80-97); Mean Platelet Volume 8.2 fL (7.5-11.2); Platelet Count 199 10^3/uL (150-450); Red Blood Count 3.46 10^6/uL (3.63-4.92); Red Cell Distribution Width 22.3 % (12-17); White Blood Count 6.4 10^3/uL (3.8-11.8)
[2024-04-04 07:56] LABS: Calcium 9.3 mg/dL (8.6-10.3); Creatinine, Serum 1.06 mg/dL (0.51-0.95); Potassium 3.9 mmol/L (3.5-5.0); eGFR CKD-EPI 53.8 (>60)
[2024-04-04] MEDS: Pantoprazole VIAL 40 MG VIAL IV SCH (08:36)
[2024-04-04 09:51] LABS: Urine Appearance Clear; Urine Bilirubin Negative (Negative); Urine Blood Negative (Negative); Urine Color Light-Yellow; Urine Glucose Negative (Negative); Urine Ketones Negative (Negative); Urine Nitrite Negative (Negative); Urine Protein Negative (Negative); Urine Specific Gravity 1.014 (1.002-1.030); Urine Urobilinogen Negative (Negative)
[2024-04-04 12:42] LABS: Hematocrit 26.5 % (35-45); Hemoglobin 8.5 g/dL (11.5-14.3); Mean Corpuscular Hemoglobin 24.1 pg (27-33); Mean Corpuscular Hgb Conc 32.3 g/dL (31-36); Mean Corpuscular Volume 74.6 fL (80-97); Platelet Count 209 10^3/uL (150-450); Red Blood Count 3.55 10^6/uL (3.63-4.92); Red Cell Distribution Width 22.6 % (12-17); White Blood Count 6.7 10^3/uL (3.8-11.8)
[2024-04-04 12:43] LABS: ABS Basophils 0.1 10^3/uL (0.0-0.1); ABS Eosinophils 0.2 10^3/uL (0.0-0.5); ABS Lymphocytes 1.1 10^3/uL (1.0-4.8); ABS Monocytes 0.7 10^3/uL (0.0-0.9); ABS Neutrophils 4.8 10^3/uL (1.5-7.6); Eosinophil % 2.7 %; Lymphocyte % 15.9 %; Nucleated Red Blood Cells % 0.1 %/100WBC (0.0-0.8)
[2024-04-04] MEDS ORDERED: Levalbuterol 0.63MG/3ML NEB UNIT OF USE INH PRN (13:30)
[2024-04-04] MEDS ORDERED: Flumazenil 0.5 mg/5 ml 0.1 MG/ML 5 ml VIAL IV PRN (13:52)
[2024-04-04] MEDS ORDERED: Naloxone 0.4 mg VIAL 0.4 mg/ml 1 ml VIAL IV PUSH PRN (13:52)
[2024-04-04] MEDS ORDERED: fentaNYL 100 mcg/2 ml 50 MCG/ML VIAL ONE (13:55)
[2024-04-04] MEDS ORDERED: Midazolam 10 mg/10 ml VIAL 1 mg/ml 10 ml VIAL (10 mg) ONE (13:55)
[2024-04-04] MEDS: Furosemide 20 mg/2 ml IV VIAL IV ONE (15:27)
[2024-04-04 17:20] LABS: INR 1.54 (0.83-1.13)
[2024-04-04 17:25] LABS: Calcium 9.1 mg/dL (8.6-10.3); Creatinine, Serum 0.99 mg/dL (0.51-0.95); Magnesium 1.6 mg/dL (1.9-2.7); Phosphorus 3.5 mg/dL (2.5-5.0); Potassium 3.5 mmol/L (3.5-5.0); eGFR CKD-EPI 58.4 (>60)
[2024-04-04] MEDS: fentaNYL 100 mcg/2 ml 50 MCG/ML VIAL IV SLOW PU ONE (18:07)
[2024-04-04] MEDS: Lidocaine 2% JELLY 6 ML Topical TOPICAL ONE (18:07)
[2024-04-04] MEDS: Midazolam 10 mg/10 ml VIAL 1 mg/ml 10 ml VIAL (10 mg) IV SLOW PU ONE (18:08)
[2024-04-04] MEDS: Ondansetron 4 mg VIAL 2 MG/ML 2 ml VIAL IV ONE (18:08)
[2024-04-04] MEDS: Lactated Ringers 1000 ml BAG 1,000 ML IV ONE (20:09)
[2024-04-04 20:21] LABS: Hematocrit 26.5 % (35-45); Hemoglobin 8.5 g/dL (11.5-14.3); Mean Corpuscular Hemoglobin 24.3 pg (27-33); Mean Corpuscular Hgb Conc 32.1 g/dL (31-36); Mean Corpuscular Volume 75.5 fL (80-97); Mean Platelet Volume 8.3 fL (7.5-11.2); Platelet Count 200 10^3/uL (150-450); Red Blood Count 3.51 10^6/uL (3.63-4.92); Red Cell Distribution Width 22.7 % (12-17); White Blood Count 6.7 10^3/uL (3.8-11.8)
[2024-04-05 05:40] LABS: ABS Basophils 0.1 10^3/uL (0.0-0.1); ABS Eosinophils 0.2 10^3/uL (0.0-0.5); ABS Monocytes 0.7 10^3/uL (0.0-0.9); ABS Neutrophils 3.9 10^3/uL (1.5-7.6); ABS Nucleated RBC 0.01 10^3/ul; Hematocrit 27.2 % (35-45); Hemoglobin 8.8 g/dL (11.5-14.3); Lymphocyte % 16.6 %; Mean Corpuscular Hemoglobin 24.2 pg (27-33); Mean Corpuscular Hgb Conc 32.2 g/dL (31-36); Mean Corpuscular Volume 75.2 fL (80-97); Mean Platelet Volume 8.4 fL (7.5-11.2); Nucleated Red Blood Cells % 0.1 %/100WBC (0.0-0.8); Platelet Count 186 10^3/uL (150-450); Red Blood Count 3.62 10^6/uL (3.63-4.92); Red Cell Distribution Width 22.4 % (12-17); White Blood Count 5.9 10^3/uL (3.8-11.8)
[2024-04-05 06:24] LABS: Calcium 9.3 mg/dL (8.6-10.3); Magnesium 1.7 mg/dL (1.9-2.7); Potassium 3.4 mmol/L (3.5-5.0); eGFR CKD-EPI 57.7 (>60)
[2024-04-05] MEDS: Potassium Chlor 20 meq TAB.ER PO ONE (08:37)
[2024-04-05] MEDS: Magnesium Sulfate 2 gm BAG 2 GM/50 ML BAG IVPB ONE (08:38)
[2024-04-05] MEDS: Magnesium Sulfate IV 1GM/100ML 1 GM/100 ML BAG IV ONE (10:11)
[2024-04-06 06:02] LABS: ABS Basophils 0.1 10^3/uL (0.0-0.1); ABS Eosinophils 0.3 10^3/uL (0.0-0.5); ABS Lymphocytes 1.2 10^3/uL (1.0-4.8); ABS Monocytes 0.6 10^3/uL (0.0-0.9); ABS Neutrophils 4.1 10^3/uL (1.5-7.6); Eosinophil % 4.4 %; Hematocrit 26.4 % (35-45); Hemoglobin 8.4 g/dL (11.5-14.3); Lymphocyte % 18.5 %; Mean Corpuscular Hemoglobin 24.4 pg (27-33); Mean Corpuscular Hgb Conc 31.9 g/dL (31-36); Mean Corpuscular Volume 76.5 fL (80-97); Nucleated Red Blood Cells % 0.1 %/100WBC (0.0-0.8); Platelet Count 184 10^3/uL (150-450); Red Blood Count 3.45 10^6/uL (3.63-4.92); White Blood Count 6.3 10^3/uL (3.8-11.8)
[2024-04-06 06:30] LABS: Creatinine, Serum 1.08 mg/dL (0.51-0.95); Magnesium 2.1 mg/dL (1.9-2.7); Potassium 3.9 mmol/L (3.5-5.0); eGFR CKD-EPI 52.6 (>60)
[2024-04-06 12:48] LABS: ABS Basophils 0.1 10^3/uL (0.0-0.1); ABS Eosinophils 0.2 10^3/uL (0.0-0.5); ABS Monocytes 0.6 10^3/uL (0.0-0.9); ABS Neutrophils 5.2 10^3/uL (1.5-7.6); Eosinophil % 3.4 %; Hematocrit 26.9 % (35-45); Hemoglobin 8.8 g/dL (11.5-14.3); Lymphocyte % 13.8 %; Mean Corpuscular Hgb Conc 32.7 g/dL (31-36); Mean Corpuscular Volume 76.5 fL (80-97); Platelet Count 209 10^3/uL (150-450); Red Blood Count 3.52 10^6/uL (3.63-4.92); White Blood Count 7.1 10^3/uL (3.8-11.8)
[2024-04-06 14:18] VITALS: BP 122/50
== END 2024-04-06 15:55 | disposition home or self-care (01) ==
LOC: EDHOLD 19:26 → ED 19:26 → SUATTDRO 04-04 00:31 → MED 04-04 15:02
PROVIDERS: ADMIT Internal Medicine; ATTEND Internal Medicine